=== PATIENT | female | born 1980 | race Two or more races ===

== ENCOUNTER 2025-02-20 14:00 | Outpatient (RCR) | payer MEDICAID, SELFPAY ==
--- NOTE | 2025-02-11 13:33 | PTNOTE_ITS ---
PT OP Initial Eval Patient Information Outpatient Physical Therapy Treatment Date: 02/11/25 Visit Reasons: LORDOSIS UNSPECIFIED Medical Diagnosis: M40.50 Treatment Dx #1: neck pain with radiculopathy Start of Care: 02/11/25 Date of Onset: 5 yrs ago Smoking Status Smoking Status: Never smoker Initial Assessment Subjective: Pt is 44 yr old bulgarian speaking female who reports neck pain that runs into B shoulders. This interrupts sleep and reaching OH, lifting things and HH chores. PMH: none reported Imaging: Xray of C/S results in chart spasm otherwide normal Pt goal: less neck and shoulder pain Objective: C/S AROM: ? Ext 50% with pain at end-range ? Flexion full with slight onset of ssx ? L rotation: full R rotation: full ? B SB: 15 deg ? C/S compression: no change ? Observation: fwd head and shoulder posture with dowager's hump ? TTP: moderate of lower C/S paraspinals around C4-7 and UT?s ? B shoulder AROM: full FF ? Dean's reflex: negative ? Assessment: Pt presents with neck pain that refers to B shoulders consistent with cervical radiculopathy, poor sitting posture and dowager's hump. Pt requires skilled therapy and has fair rehab potential to meet goals. Eval followed by HEP. 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 Ind with HEP ? 2. Improved sitting posture to neutral x5' ? 3. Decreased TTP of lower C/S from mod to min ? 4. Pt will turn head L to R x5 with <=4/10 pain Treatment Plan 1. Manual therapy ? 2. Therex ? 3. Modalities as indicated, mechanical traction, estim, moist heat, ice Frequency and Duration: 2x a week for 6 weeks plus the evaluation Certification Dates: 02/11/25 to 05/12/24 Procedure Charges OP PT Eval Mod Complex 30 minutes: Yes
--- NOTE | 2025-02-20 15:11 | PT.ODAYNRPT ---
PT Outpatient Daily Note OP Daily Note Outpatient Physical Therapy Treatment Date: 02/20/25 Visit Reasons: LORDOSIS UNSPECIFIED Subjective: Pt c/o neck pain. Objective: Please see flow sheet for ther ex list. Assessment: Cues and demonstration to perform cervical retraction exercise with desired motion, pt able to replicate after a few reps. Plan: Continue with poC. Assess response to treatment. Length of Time (minutes) of Treatment: 30 Minutes Procedure Charges Therapeutic Exercise 30 minutes: Yes
== END 2025-02-20 23:59 | disposition home or self-care (01) ==
LOC: CPTX 14:00
PROVIDERS: PCP Internal Medicine; Referring Provider Internal Medicine; Visit Provider Internal Medicine
DX: M54.12 Radiculopathy, cervical region (principal); M40.50 Lordosis, unspecified, site unspecified
CPT/HCPCS: 97110; 97162